=== PATIENT | male | born 1980 | race American Indian/Alaskan Native ===

== ENCOUNTER 2017-03-06 23:53 | Emergency (ER) | payer SELFPAY ==
[2017-03-07 00:53] VITALS: BP 134/86
== END 2017-03-07 03:05 | disposition left against medical advice (07) ==
LOC: ED 23:53
DX: M79.1 Myalgia (principal); R53.1 Weakness; Z53.21 Procedure and treatment not carried out due to patient leaving prior to being seen by health care provider